=== PATIENT | male | born 1955 | race Caucasian/White ===

== ENCOUNTER 2017-05-01 09:30 | Emergency (ER) | payer OTHER ==
[~2017-05-01] VITALS: Ht 167.6 cm; Wt 71.0 kg
[2017-05-01 09:47] VITALS: BP 146/77
--- NOTE | 2017-05-01 09:59 | NUR ---
PT AMBULATES TO BED10
--- NOTE | 2017-05-01 10:17 | NUR ---
PATIENT PRESENTS TO ED WITH LEFT CALF PAIN X 3 DAYS TENDER TO TOUCH . PT STATES . DENIES N/V/D; SKIN IS PINK/WARM/DRY; AAOX4 WITH EVEN AND STEADY GAIT; LUNGS CLEAR BL; HR EVEN AND REGULAR; PT DENIES ANY FEVER, CP, SOB, OR COUGH AT THIS TIME; PATIENT STATES PAIN OF 8/10 AT THIS TIME; VSS; PATIENT POSITIONED FOR COMFORT; HOB ELEVATED; BEDRAILS UP X2; BED DOWN. ER MD MADE AWARE OF PT STATUS.
--- NOTE | 2017-05-01 11:00 | NUR ---
ULTRASOUND AT BEDSIDE
--- NOTE | 2017-05-01 12:01 | NUR ---
CONTINUES TO WAIT FOR ULTRASOUND READ
--- NOTE | 2017-05-01 12:20 | NUR ---
GAVE PT X2 CHOCOLATE PUDDINGS REQUESTED BY PT
--- NOTE | 2017-05-01 12:25 | NUR ---
MD AT BEDSIDE SPEAKING WITH PT
--- NOTE | 2017-05-01 12:45 | NUR ---
Patient discharged with v/s stable. Written and verbal after care instructions given and explained. Patient alert, oriented and verbalized understanding of instructions. Ambulatory with steady gait. All questions addressed prior to discharge. ID band removed. Patient advised to follow up with PMD. Rx of IBUPROFEN given. Patient educated on indication of medication including possible reaction and side effects. Opportunity to ask questions provided and answered. ULTRASOUND READ HANDED TO PT TO TAKE TO HIS PMD
[2017-05-01 12:46] VITALS: BP 138/74
== END 2017-05-01 12:45 | disposition home or self-care (01) ==
LOC: MED 09:30
DX: S86.812A Strain of other muscle(s) and tendon(s) at lower leg level, left leg, initial encounter (principal); X58.XXXA Exposure to other specified factors, initial encounter; Y93.89 Activity, other specified; Y92.89 Other specified places as the place of occurrence of the external cause; Y99.8 Other external cause status
CPT/HCPCS: 93971; 99284; Q0092

== ENCOUNTER 2022-12-27 08:48 | Emergency (ER) | payer MEDICARE, OTHER ==
[~2022-12-27] VITALS: Ht 162.6 cm; Wt 67.1 kg
[2022-12-27 09:03] VITALS: BP 147/78; PULSE 52; RESP 17; TEMP 98.1; O2SAT 99
[2022-12-27] MEDS ORDERED: PROM118S5 PO (09:30)
[2022-12-27 10:24] LABS: FLU A ANTIGEN negative (NEGATIVE); FLU B ANTIGEN negative (NEGATIVE)
[2022-12-27] MEDS ORDERED: NIRM1TAB PO (10:26)
== END 2022-12-27 10:13 | disposition home or self-care (01) ==
LOC: MED 08:48
DX: B34.9 Viral infection, unspecified (principal); Z20.822 Contact with and (suspected) exposure to COVID-19; Z79.899 Other long term (current) drug therapy
CPT/HCPCS: 99283